=== PATIENT | male | born 1990 | race Two or more races ===

== ENCOUNTER 2019-04-15 22:30 | Emergency (ER) | payer OTHER ==
[~2019-04-15] VITALS: Ht 170.2 cm; Wt 81.6 kg
[2019-04-15 22:47] VITALS: BP 130/72
--- NOTE | 2019-04-15 22:48 | NUR ---
ER Nurse Note: Pt walked in from work c/o left wrist lacteration on 2224. Pt stated he broke glass and shattered on his wrist. Pt stated he cleaned the wound, no put antibacteral ointment. Slight bleeding on site; denies pain.
[2019-04-15] MEDS ORDERED: Lidocaine 1% MPF 10mg/ml 5ml INJ ONE (23:00)
[2019-04-15] MEDS ORDERED: CEPHALEXIN500 MG ORAL (23:13)
[2019-04-15] MEDS ORDERED: Tetanus/Diptheria/Pertussis IM ONE (23:15)
--- NOTE | 2019-04-15 23:16 | Emergency Room Report ---
History of Present Illness General Chief Complaint: Laceration Source: Patient Present Illness HPI Patient is a 28-year-old male presents after laceration to his left wrist. Injury occurred just prior to arrival at work. Patient reports having a broken glass cut him on the top of his wrist. 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 He denies any foreign body. He denies any other locations of injury. He denies any numbness or tingling to his fingers. He is right-hand dominant. Allergies: Coded Allergies: No Known Allergies (Unverified , 04/15/19) Patient History Past Medical History: see triage record Reviewed Nursing Documentation: PMH: Agreed; PSxH: Agreed Review of Systems All Other Systems: negative except mentioned in HPI Physical Exam Vital Signs Date Time Temp Pulse Resp B/P (MAP) Pulse Ox O2 Delivery O2 Flow Rate FiO2 04/15/19 22:38 98.8 80 18 130/72 (91) 98 Room Air General Appearance: well appearing, no apparent distress, alert, GCS 15 Head: normocephalic, atraumatic ENT: hearing grossly normal, normal voice Neck: full range of motion, supple Respiratory: lungs clear, normal breath sounds, no respiratory distress, speaking full sentences Cardiovascular #1: normal inspection Gastrointestinal: normal inspection, non tender, soft Neurologic: normal inspection, alert, oriented x3, responsive, normal gait Psychiatric: mood/affect normal Skin: laceration - 2 cm Procedures Laceration/Wound Repair Laceration/Wound Repair : Consent: Emergent Wound Location: upper extremity Wound's Depth, Shape: linear Wound Length (cm): 2 Betadine Prep?: Yes Anesthesia: 1% Lidocaine Volume Anesthetic (ccs): 4 Wound Debrided: minimal Wound Repaired With: sutures Suture Size/Type: 4:0 Number of Sutures: 4 Patient Tolerated: Well Complications: None Medical Decision Making Diagnostic Impression: Primary Impression: Laceration ER Course Patient presented for laceration. Differential diagnoses included foreign body , nerve injury, arterial injury among others. Patient's wound appears to be superficial in nature. Does not appear to have any known foreign body. Laceration was irrigated. Patient's wound was sutured with 4-0 nylon suture. Patient tolerated this well. Patient will be discharged home. He is to follow- up with his Worker's Comp. for recheck. Is advised to return if worse. Suture removal in 2 weeks.Patient placed on modified work. Last Vital Signs Date Time Temp Pulse Resp B/P (MAP) Pulse Ox O2 Delivery O2 Flow Rate FiO2 04/15/19 22:47 98.8 80 18 130/72 98 Room Air Status: improved Disposition: HOME, SELF-CARE Condition: Stable Scripts Cephalexin* (KEFLEX*) 500 Mg Capsule 500 MG ORAL EVERY 6 HOURS, #28 CAP Prov: Jeff Johnson MD 04/15/19 Referrals: NOT CHOSEN [facility]/MD,REFERRING (PCP) Patient Instructions: Laceration Care, Adult Additional Instructions: Follow up for wound check with workers comp physician. Return if worse. Suture removal in 10-14 days. Jeff Johnson MD Apr 15, 2019 23:16
[2019-04-15 23:30] VITALS: BP 130/72
--- NOTE | 2019-04-15 23:30 | NUR ---
ER Nurse Note: Patient seen, treated, medically cleared to be discharged per ERMD. Discharge instructions and prescriptons given with repeat verbalization by pt. Instructed pt to follow up with primary care physican within 10-14 days for suture removal. Pt is aox4, on room air, with stable vital signs. ID band removed. Pt ambulatory; left with all belongings.
== END 2019-04-15 23:30 | disposition home or self-care (01) ==
LOC: EMR 23:00
DX: S61.512A Laceration without foreign body of left wrist, initial encounter (principal); W25.XXXA Contact with sharp glass, initial encounter; Y93.89 Activity, other specified; Y92.59 Other trade areas as the place of occurrence of the external cause
CPT/HCPCS: 90471; 90715; 99282